=== PATIENT | female | born 2000 | race Two or more races ===

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

== ENCOUNTER 2021-09-20 10:33 | Emergency (ER) | payer OTHER ==
[2021-09-20 10:42] VITALS: BP 118/66; PULSE 86; TEMP 97.7; BMI 31.6
[2021-09-21 16:07] LABS: SARS-CoV-2 NAA Not Detected (Not Detected)
== END 2021-09-20 13:33 | disposition home or self-care (01) ==
LOC: JER 10:33
DX: J02.9 Acute pharyngitis, unspecified (principal); R09.81 Nasal congestion; R05.1 Acute cough
CPT/HCPCS: 99283-25; C9803; U0003; U0005

== ENCOUNTER 2024-04-05 15:38 | Inpatient (IN) | payer OTHER ==
[2024-04-05 16:47] VITALS: BMI 38.7
[2024-04-05] MEDS ORDERED: OXYTOCIN 20 UNITS in 0.9% NS 20 UNIT/1,000 ML INFUS.BAG IV ONE (17:33)
[2024-04-05 18:05] LABS: BASO % 0.2 % (0-2.0); EOS % 0.5 % (0-4.5); HEMATOCRIT 39.7 % (32.4-45.2); HEMOGLOBIN 13.6 GM/dL (10.7-15.3); LYMPH % 32.8 % (8-40); MCH 29.5 pg (25.7-33.7); MCHC 34.2 g/dl (32.0-36.0); MEAN CELL VOLUME 86.1 fl (80-96); MEAN PLT VOLUME 9.3 fl (7.5-11.1); MONO % 7.5 % (3.8-10.2); PLATELET COUNT 252 10^3/uL (134-434); RBC 4.61 M/mm3 (3.60-5.2); RDW 13.9 % (11.6-15.6); WHITE BLOOD COUNT 11.2 K/mm3 (4.0-10.0)
[2024-04-05] MEDS: OXYTOCIN 20 UNITS in 0.9% NS 20 UNIT/1,000 ML INFUS.BAG IV SCH (18:05)
[2024-04-05 18:16] LABS: INR 0.94 (0.83-1.09); PROTHROMBIN TIME (PATIENT) 10.6 SEC (9.7-13.0)
[2024-04-05 18:19] LABS: ACTIVATED PTT 30.6 SECONDS (25.2-36.5)
[2024-04-05] MEDS ORDERED: BENZOCAINE 20% 57 GM BOTTLE TP PRN (18:23)
[2024-04-05] MEDS ORDERED: METHYLERGONOVINE MALEATE 0.2 MG/1 ML AMP IM PRN (18:23)
[2024-04-05] MEDS ORDERED: BENZOCAINE 28 GM HEMORRHOIDAL OINTMENT TP PRN (18:23)
[2024-04-05] MEDS ORDERED: WITCH HAZEL 50% (TUCKS) 40 PAD/JAR PAD TP PRN (18:23)
[2024-04-05] MEDS ORDERED: ACETAMINOPHEN 325 MG TABLET (FP) PO PRN (18:23)
[2024-04-05 18:24] LABS: POTASSIUM 3.7 mmol/L (3.5-5.1)
[2024-04-05 18:25] LABS: BLOOD UREA NITROGEN 4.6 mg/dL (7-18); CALCIUM 9.1 mg/dL (8.5-10.1)
[2024-04-05 18:29] LABS: CREATININE 0.6 mg/dL (0.55-1.3)
[2024-04-05 18:55] LABS: CORD BASE EXCESS -4.7 mmol/L (0-2); CORD HCO3 20.7 mmHg (20-29); CORD PCO2 39.7 mmHg (30-78); CORD pH 7.335 (7.14-7.44)
[2024-04-05 18:58] LABS: CORD HCO3 23.8 mmHg (20-29); CORD PCO2 73.6 mmHg (30-78); CORD pH 7.127 (7.14-7.44)
[2024-04-05] MEDS ORDERED: IBUPROFEN 600 MG TABLET (FP) PO ONE (19:08)
[2024-04-05] MEDS: IBUPROFEN 600 MG TABLET (FP) PO PRN (19:10)
[2024-04-05 19:19] LABS: HIV INTERPRETATION NEGATIVE (NEGATIVE)
[2024-04-06] MEDS: BISACODYL 10 MG SUPP.RECT RC PRN (03:45)
[2024-04-06 08:53] LABS: BASO % 0.1 % (0-2.0); EOS % 0.6 % (0-4.5); HEMATOCRIT 34.8 % (32.4-45.2); HEMOGLOBIN 11.8 GM/dL (10.7-15.3); LYMPH % 21.5 % (8-40); MCH 29.2 pg (25.7-33.7); MCHC 33.8 g/dl (32.0-36.0); MEAN CELL VOLUME 86.3 fl (80-96); MEAN PLT VOLUME 9.4 fl (7.5-11.1); MONO % 7.3 % (3.8-10.2); NEUT % 70.5 % (42.8-82.8); PLATELET COUNT 199 10^3/uL (134-434); RBC 4.03 M/mm3 (3.60-5.2); RDW 14.1 % (11.6-15.6)
[2024-04-06] MEDS ORDERED: SENNOSIDES/DOCUSATE COMBO (SENNA PLUS) TABLET (UD) PO PRN (22:00)
[2024-04-07 11:01] VITALS: BP 129/73; PULSE 79; RESP 18; TEMP 98.6
== END 2024-04-07 19:20 | disposition home or self-care (01) | DRG 560 ==
LOC: JLDR 15:38 → J3W 20:50
PROVIDERS: ADMIT Obstetrics & Gynecology; ATTEND Obstetrics & Gynecology
PROC: 10E0XZZ Delivery of Products of Conception, External Approach (ICD-10-PCS; principal; 2024-04-05)
DX: O69.81X0 Labor and delivery complicated by cord around neck, without compression, not applicable or unspecified (principal); O77.0 Labor and delivery complicated by meconium in amniotic fluid; Z3A.40 40 weeks gestation of pregnancy; Z37.0 Single live birth
CPT/HCPCS: 36415; 36600; 59025; 59409; 80048; 82803; 85025; 85610; 85730; 86780; 86850; 86900; 86901; 87389; G0463-25